=== PATIENT | female | born 1985 | race Caucasian/White ===

== ENCOUNTER 2022-01-22 18:04 | Inpatient (IN) ==
[2022-01-22 21:01] LABS: Bilirubin,Urine Negative (Negative); Blood,Urine Negative (Negative); Clarity,Urine Clear (Clear); Color,Urine Light-Yellow (Yellow); Glucose,Urine (UA) Normal (Normal); Ketones,Urine Negative (Negative); Leukocyte Esterase,Urine Negative (Negative); Nitrite,Urine Negative (Negative); PH,Urine 6.5 pH Units (5.0-8.0); Protein,Urine Negative (Neg-Trace); Specific Gravity,Urine 1.007 (1.010-1.025); Urobilinogen,Urine Normal (Normal)
[2022-01-22 21:03] LABS: Basophils % 0.4 %; Eosinophils # 0.1 K/mcL (0.0-0.6); Hematocrit 40.1 % (35.3-44.9); Hemoglobin 13.1 g/dL (11.5-15.4); Immature Granulocytes % 0.3 % (0-4); Lymphocytes # 2.6 K/mcL (0.6-4.6); Lymphocytes % 33.2 %; Mean Corpuscular HGB Conc 32.7 g/dL (31.6-35.5); Mean Corpuscular Hemoglobin 29.4 pg (28.0-33.3); Mean Corpuscular Volume 89.9 fL (83.0-100.0); Mean Platelet Volume 9.6 fL (9.4-12.4); Monocytes # 0.6 K/mcL (0.0-1.3); Neutrophils # 4.6 K/mcL (1.6-8.9); Platelet Count 233 K/mcL (140-400); Red Blood Count 4.46 M/mcL (3.82-4.97); Red Cell Distribution Width 13.8 % (11.5-14.5); Segmented Neutrophils % 58.1 %; White Blood Count 7.9 K/mcL (4.3-11.1)
[2022-01-22 21:13] LABS: Amphetamine Screen,Urine Negative ng/mL (Cutoff=1000); Barbiturate Screen,Urine Negative ng/mL (Cutoff=200); Benzodiazepines Screen,Urine Negative ng/mL (Cutoff=200); Cannabinoid Screen,Urine Negative ng/mL (Cutoff = 50); Cocaine Screen,Urine Negative ng/mL (Cutoff= 300); Opiate Screen,Urine Negative ng/mL (Cutoff=300); Phencyclidine Screen,Urine Negative ng/mL (Cutoff=25)
[2022-01-22 21:23] LABS: Acetaminophen < 10 mcg/mL (10-20); BUN/Creatinine Ratio 8 (6-26); Blood Urea Nitrogen 8 mg/dL (6-20); Calcium 9.5 mg/dL (8.6-10.3); Carbon Dioxide 27 mEq/L (23-29); Chloride 102 mEq/L (98-107); Ethanol < 10 mg/dL (Less than 10); Glucose 103 mg/dL (70-105); Osmolality,Calculated 281 (280-300); Potassium 3.2 mEq/L (3.5-5.1); Salicylate < 2.5 mg/dL (15.0-30.0); Sodium 136 mEq/L (136-145)
[2022-01-22 22:15] LABS: Troponin I < 0.03 ng/mL (< 0.04)
[2022-01-23 01:25] LABS: Influenza A PCR Negative (Negative); Influenza B PCR Negative (Negative); Resp. Syncytial Virus PCR Negative (Negative)
[2022-01-23 01:26] LABS: SARS-CoV-2 by PCR (In House) Negative (Negative)
[2022-01-23] MEDS ORDERED: *HR* LORazepam 2 MG/ML VIAL IM PRN (02:55)
[2022-01-23] MEDS ORDERED: Haloperidol Lactate 5 MG/ML VIAL IM PRN (02:55)
[2022-01-23] MEDS ORDERED: Acetaminophen 325 MG TABLET PO PRN (02:55)
[2022-01-23] MEDS ORDERED: haloperidoL 5 MG TABLET PO PRN (02:55)
[2022-01-23] MEDS ORDERED: *HR* LORazepam 1 MG TABLET PO PRN (02:55)
[2022-01-23] MEDS ORDERED: Mag Hydrox/Al Hydrox/Simeth 30 ML UDC PO PRN (08:10)
[2022-01-23] MEDS ORDERED: MOM Conc 10 ML UD.LIQ PO PRN (08:10)
[2022-01-23] MEDS ORDERED: hydrOXYzine pamoate 25 MG CAPSULE PO SCH (21:00)
[2022-01-24] MEDS ORDERED: traZODone 50 MG TABLET PO PRN (09:50)
[2022-01-24] MEDS ORDERED: hydrOXYzine pamoate 25 MG CAPSULE PO PRN ×2 (09:50→10:03)
[2022-01-25 08:30] VITALS: BP 112/77; PULSE 77; TEMP 97.6; O2SAT 96
== END 2022-01-25 11:52 | disposition home or self-care (01) | DRG 885 ==
LOC: EMEROOARM 18:04 → 1ANU 01-23 02:45
PROVIDERS: ADMIT Psychiatry & Neurology Psychiatry; ATTEND Psychiatry & Neurology Psychiatry